=== PATIENT | male | born 1955 | race Caucasian/White ===

== ENCOUNTER 2017-02-11 06:53 | Day surgery (SDC) | payer BC ==
[~2017-02-11 06:53] MED LIST: Dextrose 5%-0.45% NaCl 1,000 ML IV SCH; Midazolam 1 MG/ML 2 ML SDV ONE; Sodium Chloride 0.9% 10 ML Syringe FLUSH PRN; fentaNYL 100 MCG/2 ML SDV ONE
[2017-02-11] MEDS ORDERED: fentaNYL 100 MCG/2 ML SDV IV ONE ×5 (08:31→16:47)
[2017-02-11] MEDS ORDERED: Midazolam 1 MG/ML 2 ML SDV IV ONE ×8 (08:32→16:47)
[2017-02-11 10:36] VITALS: BP 126/72
--- NOTE | 2017-02-11 13:11 | OR ---
DATE: 02/11/2017 PROCEDURE: Total colonoscopy and multiple pinch biopsies. INSTRUMENT USED: CF-H180AL Olympus video colonoscope. PREMEDICATIONS: Fentanyl 150 mcg intravenous, Versed 4.5 mg intravenous. Nasal O2 cannula. Procedure was done under pulse ox, BP recording, and patient monitor. INDICATION: The patient with previous colonic tubular adenoma. Colonoscopic examination is done for detection of any polypoid lesions and removal, endoscopic hemostasis therapy if needed. DESCRIPTION OF PROCEDURE: Initial rectal exam was unremarkable. Rigid anoscopy showed diminutive benign appearing polyp, multiple pinch biopsies were obtained and polyp was removed. The colonoscope was passed with ease. Numerous scattered diverticula were noted in the distal left colon. The scope was passed with ease up to the ileocecal area, photographs were taken of the normal appearing cecum, identified by landmarks of appendiceal orifice and double- bulged ileocecal folds. No bleeding was noted from any of the visualized areas at the commencement of the examination. No stricture. No vascular ectasia. No large isolated ulcerations seen. No evidence of diffuse inflammatory bowel disease in the form of friability, contact bleeding, or ulcerations. Probing the proximal sides of folds and flexures using adequate distention and clearing up the stool material, withdrawal of the scope was made, cecum to rectum time over 6 minutes. No bleeding was noted from any of the visualized areas at the completion of examination. IMPRESSION: 1. Diminutive rectal polyp. 2. Diverticulosis. The patient tolerated the procedure well. [facility] /[id number]
== END 2017-02-11 10:55 | disposition home or self-care (01) ==
LOC: DL.ENDO 06:53
PROVIDERS: ATTEND Internal Medicine Gastroenterology
DX: D12.8 Benign neoplasm of rectum (principal); K57.30 Diverticulosis of large intestine without perforation or abscess without bleeding; R51 Headache; D29.1 Benign neoplasm of prostate; M19.90 Unspecified osteoarthritis, unspecified site; E78.00 Pure hypercholesterolemia, unspecified; M10.9 Gout, unspecified; Z98.890 Other specified postprocedural states; Z88.0 Allergy status to penicillin; Z86.010 Personal history of colon polyps
CPT/HCPCS: 45380; J2250; J3010; J7042

== ENCOUNTER 2024-04-28 06:25 | Day surgery (SDC) | payer MEDICARE, OTHER ==
[~2024-04-28 06:25] MED LIST changes: -Dextrose 5%-0.45% NaCl 1,000 ML IV SCH; -Sodium Chloride 0.9% 10 ML Syringe FLUSH PRN
[2024-04-28] MEDS ORDERED: fentaNYL 100 MCG/2 ML SDV IV ONE (06:26)
[2024-04-28] MEDS ORDERED: Midazolam 1 MG/ML 2 ML SDV IV ONE (06:26)
[2024-04-28] MEDS: Dextrose 5%-0.45% NaCl 1,000 ML IV SCH (07:23)
[2024-04-28] MEDS: fentaNYL 100 MCG/2 ML SDV IV ONE ×2 (07:43→07:44)
[2024-04-28] MEDS: Midazolam 1 MG/ML 2 ML SDV IV ONE ×6 (07:44→07:50)
[2024-04-28 10:26] VITALS: BP 131/86; PULSE 57
== END 2024-04-28 09:15 | disposition home or self-care (01) ==
LOC: DL.ENDO 06:25
PROVIDERS: ATTEND Internal Medicine Gastroenterology
DX: Z12.11 Encounter for screening for malignant neoplasm of colon (principal); K21.9 Gastro-esophageal reflux disease without esophagitis; E78.5 Hyperlipidemia, unspecified; M19.90 Unspecified osteoarthritis, unspecified site; Z79.899 Other long term (current) drug therapy
CPT/HCPCS: J2250; J3010; J7799